=== PATIENT | female | born 1985 | race Caucasian/White ===

== ENCOUNTER 2016-12-14 14:32 | Emergency (ER) | payer SELFPAY ==
[~2016-12-14] VITALS: Ht 162.6 cm; Wt 68.0 kg
[2016-12-14 14:32] VITALS: BP 116/67
== END 2016-12-14 15:21 | disposition home or self-care (01) ==
LOC: ER 14:41
DX: R09.81 Nasal congestion (principal); H10.9 Unspecified conjunctivitis; R51 Headache
CPT/HCPCS: 99283; A4606; Z7610